=== PATIENT | male | born 1945 | race Caucasian/White ===

== ENCOUNTER → 2017-01-25 | Outpatient (CLI) | payer MEDICARE ==
[~2017-01-25] MED LIST: CITA20TA5 PO; DEXT20TA8 PO; FEXO1TAB25 PO; GLIP5TAB10 PO; INSU100V8 SQ; LOSA100T6 PO; METF10002 PO; METH-438 PO; MODA200T2 PO; NAPR1TAB25 PO; NAPR220T29 PO; OMEP40CA6 PO; PRAV80TA2 PO; TIZA4TAB PO; [UNRECOGNIZED DRUG - OTHER] PO
[2017-01-25 14:37] LABS: BLOOD UREA NITROGEN 15 mg/dL (7-18)
[2017-01-25 14:42] LABS: ASPARTATE AMINO TRANSFERASE 19 U/L (15-37)
== END | disposition home or self-care (01) ==
LOC: STAR 13:07
PROVIDERS: ATTEND Orthopaedic Surgery Orthopaedic Surgery of the Spine
DX: Z01.818 Encounter for other preprocedural examination (principal); E11.9 Type 2 diabetes mellitus without complications; I10 Essential (primary) hypertension; M48.06 Spinal stenosis, lumbar region; R79.1 Abnormal coagulation profile
CPT/HCPCS: 36415; 71020; 80053; 81003; 85025; 85610; 85730; 93005

== ENCOUNTER 2017-01-31 08:03 | Day surgery (SDC) | payer MEDICARE ==
[~2017-01-31] VITALS: Ht 175.3 cm; Wt 106.5 kg
[~2017-01-31 08:03] MED LIST changes: +BUPIVACAINE/PF-EPI 0.5% 1:200K ONE; +LIDOCAINE 0.5%-EPI 1:200K, 50ML ONE; +THROMBIN 5,000 UNIT VIAL TP ONE; +VANCOMYCIN 1,000 MG ONE
[2017-01-31] MEDS ORDERED: LACTATED RINGERS 1,000 ML IV SCH (08:26)
[2017-01-31 08:55] VITALS: BP 135/76
[2017-01-31] MEDS ORDERED: FENTANYL PF 250 MCG/5ML ONE (09:39)
[2017-01-31] MEDS ORDERED: MIDAZOLAM 1 MG/ML, 2ML ONE (09:39)
[2017-01-31] MEDS ORDERED: DEXAMETHASONE 4 MG/ML, 1ML ONE (10:41)
[2017-01-31] MEDS ORDERED: ROCURONIUM 10 MG/ML ONE (10:41)
[2017-01-31] MEDS ORDERED: ONDANSETRON 2MG/ML, 2ML ONE (10:41)
[2017-01-31] MEDS ORDERED: PROPOFOL 10 MG/ML, 20ML ONE (10:41)
[2017-01-31] MEDS ORDERED: CEFAZOLIN 1,000 MG ONE (10:41)
[2017-01-31] MEDS ORDERED: MORPHINE SULFATE 4 MG/ML, 1ML ONE (12:18)
[2017-01-31] MEDS ORDERED: PROMETHAZINE 25 MG/ML, 1ML IV PRN (12:30)
[2017-01-31] MEDS ORDERED: MEPERIDINE/PF 25MG/0.5ML IVPush PRN (12:30)
[2017-01-31] MEDS ORDERED: ONDANSETRON 2MG/ML, 2ML IVPush PRN (12:30)
[2017-01-31] MEDS ORDERED: HYDROmorphone 1 MG/ML, 1ML IV PRN (12:30)
[2017-01-31] MEDS ORDERED: LABETALOL 5MG/ML, 20ML IV PRN (12:30)
[2017-01-31] MEDS ORDERED: OXYcodone 5 MG/5 ML ORAL.SOL UDC PO PRN (12:30)
[2017-01-31] MEDS ORDERED: FENTANYL PF 100 MCG/2ML IV PRN (12:30)
[2017-01-31] MEDS ORDERED: ACETAMINOPHEN 325 MG TABLET PO PRN (12:30)
[2017-01-31] MEDS ORDERED: hydrALAzine 20 MG/ML, 1ML IV PRN (12:30)
[2017-01-31] MEDS ORDERED: OXYcodone 5 MG/5 ML ORAL.SOL UDC ONE (12:36)
[2017-01-31] MEDS ORDERED: FENTANYL PF 100 MCG/2ML ONE (12:36)
== END 2017-01-31 15:05 ==
LOC: OUT 08:03
PROVIDERS: ATTEND Orthopaedic Surgery Orthopaedic Surgery of the Spine
DX: E11.9 Type 2 diabetes mellitus without complications (principal); I10 Essential (primary) hypertension; Z98.890 Other specified postprocedural states; Z96.651 Presence of right artificial knee joint; Z87.39 Personal history of other diseases of the musculoskeletal system and connective tissue; Z88.0 Allergy status to penicillin
CPT/HCPCS: 63047; 72100; 82962; J0690; J1100; J2250; J2405; J2704; J3010; J3370; J7120